=== PATIENT | male | born 1990 | race Asian ===

== ENCOUNTER 2023-11-04 02:58 | Inpatient (IN) | payer OTHER, SELFPAY ==
[2023-11-04] VITALS (8 sets, daily range): BP systolic 91–120; BP diastolic 48–74; PULSE 52–99; RESP 16–20; TEMP 36.4–36.9; O2SAT 98–100; BMI 25.8; BMI 26.5
--- NOTE | ~2023-11-04 | US_ITS ---
EXAMINATION: US ABDOMEN LIMITED CLINICAL INFORMATION: Right upper quadrant pain with question of acute cholecystitis. COMPARISON: CT abdomen and pelvis earlier today TECHNIQUE: Real-time imaging of the gallbladder and common bile duct only FINDINGS: Multiple gallstones are present with the largest measuring about 1.5 cm. No gallbladder wall thickening or pericholecystic fluid is seen. The common bile duct is dilated at 1 cm. Oseguera's sign is negative but the patient has received pain medication. US/US abdomen limited IMPRESSION: Cholelithiasis with dilated common bile duct. On the prior CT scan, inflammatory changes were seen around the gallbladder. Although no obstructing lesion is seen, findings are suspicious for possible cholecystitis with choledocholithiasis. MRCP recommended for further evaluation
--- NOTE | ~2023-11-04 | MR_ITS ---
EXAMINATION: MR ABDOMEN WITHOUT CONTRAST CLINICAL INFORMATION: Abdominal pain. Gallstones. COMPARISON: Right upper quadrant ultrasound 11/04/2023 CT abdomen/pelvis 11/04/2023 TECHNIQUE: MR abdomen is performed without gadolinium contrast. Heavily T2 weighted MRCP sequences were also obtained. FINDINGS: LUNG BASES: No pleural or pericardial effusion. LIVER, GALLBLADDER, AND BILIARY TREE: The liver is normal in size, smooth in contour, and normal in signal. The common duct measures 7 mm at the gilberto hepatis and tapers smoothly. Mild central intrahepatic biliary ductal dilatation. No intraductal filling defects. Gallstones. Trace pericholecystic fluid. PANCREAS: No ductal dilatation. SPLEEN: Not enlarged. ADRENAL GLANDS: No adrenal mass. KIDNEYS AND URETERS: The kidneys are normal in size and shape. No hydronephrosis. No perinephric stranding. GASTROINTESTINAL TRACT: No small bowel bowel obstruction. No ascites or fluid collection. LYMPH NODES: No bulky lymphadenopathy. VASCULAR: Normal caliber abdominal aorta. MR/MR MRCP IMPRESSION: Cholelithiasis. Trace pericholecystic fluid. Mild intrahepatic and extrahepatic biliary ductal dilatation without intraductal filling defects. Advise clinical correlation for acute cholecystitis.
--- NOTE | ~2023-11-04 | CT_ITS ---
EXAMINATION: CT ABDOMEN AND PELVIS WITH CONTRAST CLINICAL INFORMATION: Pain, question appendicitis COMPARISON: None available. TECHNIQUE: Multidetector volumetric images were obtained from the superior aspect of the liver through the pubic symphysis following administration 85 mL of Omnipaque 350 intravenous contrast. Sagittal and coronal reformatted images were obtained on the technologist's workstation. Oral contrast: No This CT examination was performed using dose optimization techniques as appropriate, variously including the following: *Automated exposure control *Adjustment of mA and/or kV according to patient size (this includes techniques or standardized protocols for targeted exams where dose is matched to indication/reason for exam; i.e. extremities or head) *Use of iterative reconstruction technique DLP: 429 mGy-cm FINDINGS: Limited evaluation in some regions due to motion artifact. LUNG BASES: The visualized lung bases are unremarkable. LIVER, GALLBLADDER, AND BILIARY TREE: The liver is normal in size, shape, and attenuation. No focal hepatic lesion or biliary ductal dilatation is present. Gallbladder is suboptimally assessed due to motion artifact. No densely calcified gallstones are seen. Gallbladder wall appears slightly prominent. PANCREAS: Unremarkable. SPLEEN: Unremarkable. ADRENAL GLANDS: Unremarkable. KIDNEYS AND URETERS: The kidneys are normal in size, shape, and attenuation. No hydronephrosis, hydroureter, or calculi seen. No perinephric stranding. BLADDER: Unremarkable. GASTROINTESTINAL TRACT: No evidence of bowel obstruction. No significant bowel wall thickening is seen. Appendix appears nondilated. No free fluid or free air is seen. ABDOMINAL WALL: No significant hernia is appreciated. LYMPH NODES: Normal. VASCULAR: Unremarkable. PELVIC VISCERA: Unremarkable. OSSEOUS STRUCTURES: Unremarkable. CT/CT abdomen pelvis w IV con IMPRESSION: Limited evaluation in some regions due to motion artifact. Gallbladder wall appears slightly prominent, of uncertain significance. If there is clinical concern for acute gallbladder pathology, assessment with ultrasound is recommended. Otherwise, no additional acute findings identified in the abdomen/pelvis. Normal appendix.
[2023-11-04 04:00] LABS: Basophils Absolute Auto 0.1 X10*3/uL (0.0-0.2); Basophils Percent Auto 0.3 % (0-2); Eosinophils Absolute Auto 0.1 X10*3/uL (0.0-0.4); Eosinophils Percent Auto 0.4 % (0-4); Hematocrit 39.9 % (42.0-52.0); Hemoglobin 13.7 g/dl (14.0-18.0); Imm Gran Abs Auto 0.05 X10*3/uL (0.00-0.03); Imm Gran Pct Auto 0.3 % (0.0-0.4); Lymphocytes Absolute Auto 3.2 X10*3/uL (1.2-4.9); Lymphocytes Percent Auto 19.3 % (20-40); MANUAL DIFF FLAG NO; Mean Corpuscular HGB Conc 34.3 g/dl (31.0-36.0); Mean Corpuscular Hemoglobin 30.4 pg (27.0-33.0); Mean Corpuscular Volume 88.5 fL (80.0-98.0); Monocytes Percent Auto 6.1 % (2-11); Neutrophils Absolute Auto 12.2 x10*3/uL (2.0-8.3); Neutrophils Percent Auto 73.6 % (45-73); Platelet Count 336 X10*3/uL (160-400); Red Blood Count 4.51 X10*6/uL (4.60-5.80); Red Cell Distribution Width 13.2 % (11.0-16.0); White Blood Count 16.6 X10*3/uL (4.8-10.8)
[2023-11-04 04:15] LABS: Alanine Aminotransferase 21 U/L (0-40); Albumin Level 4.1 g/dL (3.5-5.0); Alkaline Phosphatase 87 U/L (39-117); Anion Gap 11 (12-20); Aspartate Amino Transferase 17 U/L (5-37); Bilirubin Direct 0.1 mg/dL (0.0-0.5); Bilirubin Total 0.4 mg/dL (0.0-1.0); Blood Urea Nitrogen 11 mg/dL (9-16); Carbon Dioxide 30 mmol/L (22-29); Chloride 105 mmol/L (96-108); Creatinine Clr Calc Pharmacy 107.7; Estimated Glomerular Filt Rate > 60; Glucose Random 119 mg/dL (60-115); Lipase 19 U/L (8-78); Potassium 3.7 mmol/L (3.3-5.1); Sodium 142 mmol/L (135-145); Total Protein 7.1 g/dL (6.5-8.0)
--- NOTE | 2023-11-04 04:38 | ED_ITS ---
HPI - Abdominal Pain General Chief Complaint: Abdominal Pain Stated Complaint: rt side abd pain Time Seen by Provider: 11/04/23 04:19 Source: patient Mode of arrival: ambulatory Limitations: no limitations History of Present Illness ED Provider: jacquelyn CRAFT narrative: Patient otherwise healthy complaining of pain in right lower abdomen since 11/02/2023 got worse prior to arrival could not sleep vomited with nausea had meal at 20:00 last night no fever no chills no urinary complaints no history of kidney stone, no hematuria had normal bowel movement pain gets worse on ambulation Related Data Allergies Allergy/AdvReac Type Severity Reaction Status Date / Time No Known Allergies Allergy Verified 11/04/23 03:10 Review of Systems Review of Systems Yes all other systems are reviewed and are negative [facility] Social History Social History Advance Directives: No Advance Directives Information Provided: Yes Do you have a plan to hurt others: No Plan Physical Exam ED Vital Signs: Vital Signs - 24 hr 11/04/23 03:09 11/04/23 06:25 Temperature 97.8 F 98.2 F Pulse Rate 62 52 Respiratory Rate 16 16 Blood Pressure 108/74 91/48 L Pulse Oximetry 99 98 Oxygen Delivery Method Room Air Room Air BMI result Body Mass Index 25.8 Appearance: Alert. Oriented X3. No acute distress. Eyes: No pallor or icterus ENT: Pharynx normal. Oral Mucosa moist Neck: Normal inspection. Neck supple. CVS: Normal heart rate and rhythm. Pulses normal. Respiratory: No respiratory distress. Equal air entry bilateral, no wheezing/rales/rhonchi Abdomen: Soft and tenderness with guarding right lower quadrant and deep tenderness right upper quadrant , Bowel sounds are present, no mass palpable, no CVA tenderness Skin: Skin warm and dry. Normal skin color. Normal skin turgor. Extremities: No lower extremity edema. No calf tenderness Neuro: Oriented X 3. No motor deficit. Medical Decision Making Medical Decision Making [facility] Narrative: Patient has leukocytosis right lower abdominal pain possible appendicitis CT scan final report is pending but I did not see any inflammation right lower abdomen, patient is signed out to Dr. Whiting pending CT scan report and disposition CT scan of the abdomen revealed normal appendix showed possible gallstones will get ultrasound patient does have slight tenderness in right upper quadrant also Differential Diagnosis Differential Diagnoses: The differential diagnosis associated with the presentation includes Acute appendicitis/ureteric stone/gallstones/diverticulitis/gastroenteritis Admission/Observation Consideration of admission/observation: Escalation of care including admission/observation considered Lab Data MDM Lab Attestation statement: I reviewed the patient's lab results. 11/04/23 03:56 11/04/23 03:56 Labs: Lab Results 11/04/23 Range/Units 03:56 WBC 16.6 H (4.8-10.8) X10*3/uL RBC 4.51 L (4.60-5.80) X10*6/uL Hgb 13.7 L (14.0-18.0) g/dl Hct 39.9 L (42.0-52.0) % MCV 88.5 (80.0-98.0) fL MCH 30.4 (27.0-33.0) pg MCHC 34.3 (31.0-36.0) g/dl RDW 13.2 (11.0-16.0) % Plt Count 336 (160-400) X10*3/uL MPV 9.0 L (9.4-12.4) fL Immature Gran % (Auto) 0.3 (0.0-0.4) % Neut % (Auto) 73.6 H (45-73) % Lymph % (Auto) 19.3 L (20-40) % [place] % (Auto) 6.1 (2-11) % Eos % (Auto) 0.4 (0-4) % Baso % (Auto) 0.3 (0-2) % Lymph # (Auto) 3.2 (1.2-4.9) X10*3/uL [place] # (Auto) 1.0 (0.1-1.2) X10*3/uL Eos # (Auto) 0.1 (0.0-0.4) X10*3/uL Baso # (Auto) 0.1 (0.0-0.2) X10*3/uL Abs Immat Gran (auto) 0.05 H (0.00-0.03) X10*3/uL Absolute Neuts (auto) 12.2 H (2.0-8.3) x10*3/uL Absolute Nucleated RBC 0.000 (0.0-0.012) X10*3/uL Nucleated RBC % (auto) 0.0 (0.0-0.2) /100WBC Sodium 142 (135-145) mmol/L Potassium 3.7 (3.3-5.1) mmol/L Chloride 105 (96-108) mmol/L Carbon Dioxide 30 H (22-29) mmol/L Anion Gap 11 L (12-20) BUN 11 (9-16) mg/dL Creatinine 0.88 (0.5-1.4) mg/dL Estim Creat Clear Calc 107.7 Estimated GFR > 60 Random Glucose 119 H (60-115) mg/dL Calcium 9.0 (8.4-10.2) mg/dL Total Bilirubin 0.4 (0.0-1.0) mg/dL Direct Bilirubin 0.1 (0.0-0.5) mg/dL AST 17 (5-37) U/L ALT 21 (0-40) U/L Alkaline Phosphatase 87 (39-117) U/L Total Protein 7.1 (6.5-8.0) g/dL Albumin 4.1 (3.5-5.0) g/dL Lipase 19 (8-78) U/L Independent Interpretation I performed an independent interpretation of an: CT Scan Radiology Impression Discussion of test interpretation with radiology: I have reviewed the radiologist's reading. Radiologist Impression: CT/CT abdomen pelvis w IV con IMPRESSION: Limited evaluation in some regions due to motion artifact. Gallbladder wall appears slightly prominent, of uncertain significance. If there is clinical concern for acute gallbladder pathology, assessment with ultrasound is recommended. Otherwise, no additional acute findings identified in the abdomen/pelvis. Normal appendix. Medications Administered Discontinued Medications Generic Name Dose Route Start Last Admin Trade Name Freq PRN Reason Stop Dose Admin Sodium Chloride 1,000 mls @ 999 mls/hr 11/04/23 04:37 11/04/23 06:04 Ns IV 11/04/23 05:37 Infused .Q1H1M ONE Infusion Iohexol 85 ml 11/04/23 05:31 11/04/23 05:31 Iohexol 350 Mg/Ml 100 Ml Infus..Btl IV 11/04/23 05:32 85 ml ONCE ONE Administration Morphine Sulfate 4 mg 11/04/23 04:37 11/04/23 05:03 Morphine Sulfate 4 Mg/Ml Cartridge IVPUSH 11/04/23 04:38 4 mg ONCE ONE Administration Protocol Ondansetron HCl 4 mg 11/04/23 04:37 11/04/23 05:03 Ondansetron Hcl 4 Mg/2 Ml Vial IVPUSH 11/04/23 04:38 4 mg ONCE ONE Administration Discharge Plan Discharge Clinical Impression: Abdominal pain Patient Disposition: Still a Patient Print Language: Hong Konger
[2023-11-04] MEDS: Morphine Sulfate 4 MG/ML CARTRIDGE IVPUSH (05:03)
[2023-11-04] MEDS: ondansetron HCL 4 MG/2 ML VIAL IVPUSH (05:03)
[2023-11-04] MEDS: 0.9 % Sodium Chloride 1,000 ML 999 ML IV ×2 (05:03→09:49)
[2023-11-04] MEDS: iohexoL 350 MG/ML 100 ML INFUS..BTL 85 ML IV (05:31)
--- NOTE | 2023-11-04 07:43 | PC.NURSE ---
Resumed care of pt at 0700. Resting in bed quietly, respirations even and unlabored, no increased WOB/SOB. US taken, call singh within reach, pt aware of plan of care at this time.
[2023-11-04] MEDS: cefTRIAXone sodium 1 GM in 0.9 % Sodium Chloride 50 ML IV (09:48)
[2023-11-04 10:01] LABS: Appearance Urine Turbid; Color Urine Yellow; Glucose Urine UA Negative (Negative); Leukocyte Esterase Urine Negative (Negative); Nitrite Urine Negative (Negative); PH >= 9.0 (5.0-9.0); Specific Gravity - Urine >= 1.030 (1.005-1.025); UMIC TRIGGER UACC YES; Urine Blood Negative (Negative); Urine Ketones Negative (Negative); Urine Protein 30 (1+) mg/dL (Neg-Trace)
[2023-11-04 10:03] LABS: Bacteria Urine None Seen (None Seen); Hyaline Casts Urine 0-2 /LPF (0-2); RBC Urine 0-2 /HPF (0-2); Squamous Epithelial Cell Urine 0-2 /HPF (0-2); WBC Urine 0-5 /HPF (0-5)
--- NOTE | 2023-11-04 10:04 | PC.NURSE ---
Pt aware of NPO status, last oral intake 8pm yesterday 11/02
[2023-11-04 10:06] LABS: Lactic Acid 1.1 mmol/L (0.5-2.0)
[2023-11-04] MEDS: 0.9 % Sodium Chloride 500 ML IV (10:36)
--- NOTE | 2023-11-04 10:49 | PC.NURSE ---
MRI screening form done and faxxed.
--- NOTE | 2023-11-04 10:53 | PM.HPGS ---
History of Present Illness History of Present Illness Date of Service: 11/05/23 Chief complaint: Gallstone Narrative: Manfred Neal is a 33 year old male who came to the ER around 04:00 o'clock this morning because of right-sided abdominal pain. He says this was relieved after was given narcotics earlier. He denies any nausea or vomiting. He does state that he has had this periodic pain for about over a year now. He says he has had multiple episodes but has not really gone to the ER except early this morning He does not see any primary care physician. He does not have any previous abdominal surgery.l Review of Systems Constitutional: Constitutional: Denies chills and Denies fever(s) Cardiovascular: Cardiovascular: Denies chest pain, Denies dyspnea and Denies dyspnea on exertion Respiratory: Respiratory: Denies cough, Denies dyspnea and Denies dyspnea on exertion Gastrointestinal: Gastrointestinal: Denies hematochezia and Denies change in bowel habits Genitourinary: Genitourinary: Denies hematuria and Denies difficulty urinating Musculoskeletal: Musculoskeletal: Denies back pain and Denies limited range of motion Neurologic: Denies focal weakness and Denies convulsions Psychiatric: Psychiatric: Denies depression and Denies mood swings PMFSH Past Medical History Medical History Gallstones Surgical History Surgical History [place] teeth extracted Social History Social History Household Members: Family Housing: Apartment Do you presently have visiting nurse or other home services: No Patient Tobacco Use Status: Current someday Tobacco user Tobacco use type: Cigarette Cigarettes Per Day: 1 Smoked in Last 30 Days: Yes Patient Interested in Nicotine Replacement: No Patient Given Instructions on How to Stop Smoking: No Second Hand Smoke Exposure: No Use of substances other than those prescribed or required for medical reasons: Yes Substance Use Type: Marijuana Substance Use Type Other:: last 2 days ago Substance Use Frequency: Daily Last Used Substance: Days (ago) Currently Displaying Signs/Symptoms of Drug Intoxication Withdrawal: No Any prior treatment program specific to substance use: No Have you been hit, kicked, punched, or otherwise hurt by someone within the past year? If so, by whom?: No Do you feel safe in your current relationship?: Yes Is there a partner from a previous relationship who is making you feel unsafe now?: No Are you made to feel afraid or neglected: No Are you DNR?: No Advance Directives: No Advance Directives Information Provided: Yes Do you have a plan to hurt others: No Plan Recently lost weight without trying: No How much weight loss: Not applicable Eating poorly because of decreased appetite: No Nutrition screen score: 0 Nutrition Risks: No Nutritional Risk Meds Allergies Allergy/AdvReac Type Severity Reaction Status Date / Time No Known Allergies Allergy Verified 11/04/23 03:10 Home Medications ?Medication ?Instructions ?Recorded ?Confirmed ?Last Taken ?Type valacyclovir 500 mg tablet 500 mg PO Q12H 11/04/23 11/04/23 11/03/23 20:00 History (Valtrex) Physical Exam Vital Signs: Vital Signs: Last Vital Signs Temp 98.2 F 11/04/23 09:17 Pulse 57 11/04/23 09:17 Resp 16 11/04/23 09:17 BP 103/61 11/04/23 10:33 Pulse Ox 99 11/04/23 09:17 O2 Del Method Room Air 11/04/23 09:17 BMI result Body Mass Index 25.8 Const: General: comfortable and no acute distress Orientation/consciousness: patient oriented x3 Neck: Neck: Yes no lymphadenopathy Resp: Auscultation: clear to auscultation bilaterally Cardio: Rhythm: regular rhythm GI: Palpation (GI): Soft to palpation, nontender and no guarding Neuro: General: patient oriented x3 Results Results Labs: Short CBC 11/04/23 Range/Units 03:56 WBC 16.6 H (4.8-10.8) X10*3/uL Hgb 13.7 L (14.0-18.0) g/dl Hct 39.9 L (42.0-52.0) % Plt Count 336 (160-400) X10*3/uL BMP 11/04/23 03:56 Sodium 142 Potassium 3.7 Chloride 105 Carbon Dioxide 30 H BUN 11 Creatinine 0.88 Calcium 9.0 Liver Function 11/04/23 Range/Units 03:56 Total Bilirubin 0.4 (0.0-1.0) mg/dL Direct Bilirubin 0.1 (0.0-0.5) mg/dL AST 17 (5-37) U/L ALT 21 (0-40) U/L Alkaline Phosphatase 87 (39-117) U/L Albumin 4.1 (3.5-5.0) g/dL Urine 11/04/23 Range/Units 09:45 Urine Color Yellow Urine Appearance Turbid Urine pH >= 9.0 (5.0-9.0) Ur Specific [place] >= 1.030 H (1.005-1.025) Urine Protein 30 (1+) H (Neg-Trace) mg/dL Urine Glucose (UA) Negative (Negative) mg/dL Abdomen CT scan report/results: report reviewed and image reviewed CT scan - pelvis: report reviewed and image reviewed Abdominal ultrasound report/results: report reviewed and image reviewed Assessment and Plan (1) Gallstones: Status: Acute He had right sided abdominal pain which he described as severe this morning. His pain has resolved but he says he has had multiple episodes in the past. I have reviewed his CT and US, and this shows gallstones with some thickening of the GB wall c/w cholecystitis. There is suggestion of CBD dilatation but his LFTs are normal. AN MRCP has been ordered. He does have leukocystosis so I will admit him. I explained the option of laparoscopic cholecystectomy. I discussed the technique of this procedure. I reviewed the risks including but not limited to bleeding, infections, bowel injury, injury to the liver, injury to the bile ducts, bile leak, retained stones, as well as the benefits and alternatives. He does state that he wants to proceed with cholecystectomy in view of his recurrent episodes. If his MRCP does not show CBD stones, we may be able to do this cholecystectomy tomorrow. His was with him during the discussion. He looks well and nontoxic at this time. Quality Stroke Does the patient have a stroke diagnosis?: No VTE Prior VTE?: No VTE Risk Level:: Medical - low VTE Device Contraindication: N/A - Device Ordered VTE Drug Contraindication: Treatment Not Indicated Procedures Date of Service Date of Service: 11/05/23
--- NOTE | 2023-11-04 11:32 | PC.NURSE ---
pt being transported to MRI at this time.
[2023-11-04] MEDS: Lactated Ringers 1,000 ML 80 ML IVCONT (12:41)
[2023-11-04] MEDS: Piperacillin Sodium/Tazobactam 3.375 GM in 0.9 % Sodium Chloride 50 ML IV ×2 (12:41→19:39)
--- NOTE | 2023-11-04 12:42 | PC.NURSE ---
pt returned from MRI at this time. IVF/abx administered per provider order. MRI results pending. pt resting in no apparent distress. no sob/wob noted. respirations even/unlabored. pt continues to wait for bed assignment at this time. plan of care ongoing.
--- NOTE | 2023-11-04 12:46 | PHA.MEDREC ---
Addendum entered by Alison Diaz tigist 11/04/23 12:51: REVIEWED Original Note: Pharmacy Consult ? Medication Reconciliation Pharmacy has completed the medication reconciliation. Confirmed medications with patient and member at bedside. Patient states they are taking a Valtrex 500mg tab once daily and he gets it filled at [facility] on [facility] in [place] and states he last took it last night around 8pm with dinner.
--- NOTE | 2023-11-04 16:30 | PC.NURSE ---
pt continues to rest in no apparent distress w the lights dimmed. denies any pain at this time. has no complaints. respirations remain even/unlabored. call singh placed within reach.
--- NOTE | 2023-11-04 19:57 | MHC.EDTECH ---
This tech took over care of patient at 1900,hourly rounds and vitals completed,belongings list completed and copy placed in chart,girlfriend at bedside call singh in reach
[2023-11-05] VITALS (16 sets, daily range): BP systolic 97–132; BP diastolic 55–85; PULSE 44–81; RESP 15–20; TEMP 36.1–37.3; O2SAT 96–100
[2023-11-05] MEDS: Piperacillin Sodium/Tazobactam 3.375 GM in 0.9 % Sodium Chloride 50 ML IV ×4 (00:04→18:35)
[2023-11-05] MEDS: Lactated Ringers 1,000 ML 80 ML IVCONT ×3 (00:35→21:47)
[2023-11-05 06:45] LABS: Alanine Aminotransferase 15 U/L (0-40); Albumin Level 3.2 g/dL (3.5-5.0); Alkaline Phosphatase 70 U/L (39-117); Aspartate Amino Transferase 15 U/L (5-37); Bilirubin Direct 0.3 mg/dL (0.0-0.5); Bilirubin Total 0.9 mg/dL (0.0-1.0); Total Protein 5.7 g/dL (6.5-8.0)
--- NOTE | 2023-11-05 08:03 | PM.EVENT ---
Event Note Date of Service: 11/05/23 Event Note: Patient says that he slept well overnight Denies significant pain No fever Abdomen soft and benign MRCP does not show filling defect or suggestion of CBD obstruction LFTs normal this morning For laparoscopic cholecystectomy today in view of recurrent episodes of pain He understands the technique of the planned procedure as well as the risks, benefits, and alternatives Time Spent With Patient Time: Total time managing care of this patient today ____ minutes.
--- NOTE | 2023-11-05 08:08 | P.CONAN_ITS ---
[facility] Active Problems Active Problems: All Active Problems Gallstones (Acute) Acute cholecystitis (Acute) Abdominal pain (Acute) Past Medical History Medical History Gallstones Surgical History Surgical History [place] teeth extracted History of Problems with Anesthesia: No Social History Social History Household Members: Family Housing: Apartment Do you presently have visiting nurse or other home services: No Patient Tobacco Use Status: Current someday Tobacco user Tobacco use type: Cigarette Cigarettes Per Day: 1 Second Hand Smoke Exposure: No Substance Use Type: Marijuana Meds Allergies Allergy/AdvReac Type Severity Reaction Status Date / Time No Known Allergies Allergy Verified 11/04/23 03:10 Active Medications: Current Medications Acetaminophen (Acetaminophen 325 Mg Tablet) 650 mg PO Q6H PRN PRN Reason: Pain, Mild (Pain Scale 1-3), fever or headache Calcium Carbonate (Calcium Carbonate 750 Mg Tab.Chew) 750 mg PO Q4H PRN PRN Reason: Heartburn Lactated Ringer's (Lr) 1,000 mls @ 80 mls/hr IVCONT .[id number] [facility] Last Admin: 11/05/23 00:35 Dose: 80 mls/hr Piperacillin Sod/Tazobactam (Sod 3.375 gm/ Sodium Chloride) 50 mls @ 100 mls/hr IV Q6H [facility] Last Infusion: 11/05/23 06:30 Dose: Infused Magnesium Hydroxide (Milk Of Magnesia 30 Ml Oral.Susp) 30 ml PO DAILY PRN PRN Reason: Constipation Melatonin (Melatonin 3 Mg Tablet) 6 mg PO BEDTIME PRN PRN Reason: Insomnia Morphine Sulfate (Morphine Sulfate 2 Mg/Ml Cartridge) 2 mg IVPUSH Q3H PRN; Protocol PRN Reason: Pain, Severe (Pain Scale 7-10) Ondansetron HCl (Ondansetron Hcl 4 Mg/2 Ml Vial) 4 mg IVPUSH Q6H PRN PRN Reason: Nausea Sodium Chloride (0.9 % Sodium Chloride Flush 3 Ml Syringe) 3 ml IVFLUSH QSHIFT [facility] Last Admin: 11/05/23 07:19 Dose: Not Given Home Medications ?Medication ?Instructions ?Recorded ?Confirmed ?Last Taken ?Type valacyclovir 500 mg tablet 500 mg PO Q12H 11/04/23 11/04/23 11/03/23 20:00 History (Valtrex) Exam Height,Weight and Vital Signs: Height 5 ft 6 in Weight 74.5 kg Last Vital Signs Temp 98.5 F 11/05/23 07:11 Pulse 53 11/05/23 07:11 Resp 16 11/05/23 07:11 BP 105/58 L 11/05/23 07:11 Pulse Ox 96 11/05/23 07:11 O2 Del Method Room Air 11/05/23 07:11 Pertinent Lab Results Pertinent Lab Results: Laboratory Tests 11/04/23 11/04/23 11/05/23 03:56 09:45 05:39 WBC 16.6 H RBC 4.51 L Hgb 13.7 L Hct 39.9 L MCV 88.5 MCH 30.4 MCHC 34.3 RDW 13.2 Plt Count 336 MPV 9.0 L Immature Gran % (Auto) 0.3 Neut % (Auto) 73.6 H Lymph % (Auto) 19.3 L [place] % (Auto) 6.1 Eos % (Auto) 0.4 Baso % (Auto) 0.3 Lymph # (Auto) 3.2 [place] # (Auto) 1.0 Eos # (Auto) 0.1 Baso # (Auto) 0.1 Abs Immat Gran (auto) 0.05 H Absolute Neuts (auto) 12.2 H Absolute Nucleated RBC 0.000 Nucleated RBC % (auto) 0.0 Hold Purple Top SEE NOTE Sodium 142 Potassium 3.7 Chloride 105 Carbon Dioxide 30 H Anion Gap 11 L BUN 11 Creatinine 0.88 Estim Creat Clear Calc 107.7 Estimated GFR > 60 Random Glucose 119 H Lactic Acid 1.1 Calcium 9.0 Total Bilirubin 0.4 0.9 Direct Bilirubin 0.1 0.3 AST 17 15 ALT 21 15 Alkaline Phosphatase 87 70 Total Protein 7.1 5.7 L Albumin 4.1 3.2 L Lipase 19 Urine Color Yellow Urine Appearance Turbid Urine pH >= 9.0 Ur Specific [place] >= 1.030 H Urine Protein 30 (1+) H Urine Glucose (UA) Negative Urine Ketones Negative Urine Blood Negative Urine Nitrite Negative Ur Leukocyte Esterase Negative Urine RBC 0-2 Urine WBC 0-5 Ur Squamous Epith Cells 0-2 Urine Bacteria None Seen Hyaline Casts 0-2 Airway Mallampati Class: III (long left central incisor) TM Dist: >3cm Neck ROM: Full Loose/Missing/Broken Teeth: No Heart: RRR Lungs: CTA Assessment and Plan Assessment Anesthesia Assessment: Anesthesia Plan Discussed and Chart Reviewed Final Anesthetic Review History of Problems with Anesthesia: No NPO: Yes ASA Class: II Final Preanesthetic Review: Meds/Allgs Chart Reviewed, Consent Obtained/Reviewed and Anes Risks/Benef Reviewed Patient Risk: Low Procedure Risk: Intermediate Anesthetic Plan Anesthetic Plan: GA Disposition: Standard PACU
--- NOTE | 2023-11-05 10:57 | P.OP_ITS ---
Operative Note Operative Note Date of Service: 11/05/23 Narrative: Preop diagnosis: Gallstones, acute cholecystitis Postop diagnosis: Acute on chronic calculous cholecystitis Procedure: Laparoscopic cholecystectomy Surgeon: Danis Echols MD Development Technical Lead: SHAWANDA Reynolds student The patient is a 33-year-old male with multiple episodes of right upper quadrant pain CT, admitted for an acute episode yesterday. He had gallstones on imaging studies with some suggestion of cholecystitis. In view of recurrent symptoms he wanted to proceed with cholecystectomy. He understood the technique of the planned procedure as well as the risks, benefits and alternatives. He was brought to the operating room. He was placed supine under general anesthesia via endotracheal tube. The abdomen was prepped and draped in usual sterile fashion. A surgical time-out was done. The patient received Cefotan 2 g IV preoperatively I made a short supraumbilical incision using blade 15. This was carried down through the full-thickness of the skin subcutaneous fat down to the fascia. The fascia was incised. The peritoneum was entered. Through this incision a Beltran port was introduced. Pneumoperitoneum was introduced to a pressure of 15 mm Hg. From here on the rest the procedure was done under vision with the 10 mm 30 degree laparoscope With laparoscopic visualization I inserted a 5/12 mm port in the epigastric area below the subcostal margin. Two 5 mm ports introduced a small incisions below the subcostal margin along the anterior axillary line and the the midclavicular line. Graspers were placed through these working ports. The patient was placed in head up [id number] position. The gallbladder was seen at the fundus. I was able to apply a grasper at the fundus to retract the gallbladder cephalad. The gallbladder was therefore being retracted in cephalad fashion. By doing so was able to visualize the entire gallbladder. There was note of thickened, fibrotic wall, some erythema along with large stones making grasping the neck difficult. The stone in the neck appeared to be impacted. Eventually I was able to apply a grasper towards the neck of the gallbladder. There was note of a lot of thick fibrous bands surrounding the neck which we had to carefully dissect with the [place] dissector. The gallbladder was being retracted in a cephalad fashion to put the area of the cystic duct on stretch. I then had to do careful dissection with the [place] dissector to define the cystic duct. This part of the procedure took an extended period of time because of the amount of adhesions with fibrotic changes in the area. Eventually I was able to see what appeared to be the cystic duct along with its confluence of the neck of the gallbladder. We were able to achieve a critical view of the hepatocystic triangle. There were no other structures in this area except for thin vessels included the cystic artery I was able to apply a clip at the cystic duct with 2 clips being applied distally. The cystic duct was transected between clips with Endo scissors. Retraction of the gallbladder away from the liver bed was done. I gently dissected the area of the hilum. Was able to visualize the cystic artery. This was gently defined with the [place] dissector. Clips were applied on the cystic artery with 2 clips being applied distally. The cystic artery was also transected with the clips with Endo scissors. There was note of others fine small vessels in the area of the hilum which she had to clip and divide between clips with scissors Eventually was able to reach the interface of the gallbladder wall and the liver bed. I used the hook electrocautery to dissect the gallbladder wall off of the liver bed. Again the planes were difficult in view of chronic fibrotic changes. We had to proceed slowly with a combination of blunt dissection with the tip of the electrocautery hook as well as electrocautery itself I gently the gallbladder from the liver bed along a poorly defined plane. I had to apply clips multiple times on areas of the dissected wall has a bleeding from chronic inflammation. Eventually I was able to reach the fundus and completely separate the gallbladder from the liver bed. The gallbladder was distended with large stones. I retrieved the bladder using an endobag through the umbilical incision. I had to dilate this fascial incision with a large Tamanna clamp to allow us to retrieved the specimen because of the large stones I reinserted all ports and re-insufflated I examined the subhepatic space. There was no signs of any bleeding. I copiously irrigated the area and observed for about 2 minutes. There was no bleeding and I suctioned out the irrigant fluid. I observed all 4 quadrants. There was no other pathology. There was no evidence of any bowel injury or any bile leak Once hemostasis was confirmed, I proceeded to then desufflated the port sites. I removed all ports under vision with the laparoscope. The umbilical port was removed last. The fascia of the umbilical incision was closed with a [id number] Polysorb 0 stitch. All skin incisions were closed with Polysorb 4-0 subcuticular running sutures. All incisions were infiltrated with Marcaine 0.5% for postop analgesia. Steri-Strips and dressings were applied. The procedure was then completed The patient tolerated the procedure well. There were no immediate complications. Initial and final counts of sponges and instruments were correct. Estimated blood loss about 100 cc The patient was extubated without difficulty and transferred to the recovery room with stable vital signs.
[2023-11-05] MEDS: HYDROmorphone HCl 0.5 MG/0.5 ML SYRINGE 0.25 MG IVPUSH ×4 (11:12→11:45)
--- NOTE | 2023-11-05 14:00 | MHC.CM.PN ---
CM attempted to meet with patient x2, off floor for surgery the back on unit sleeping. CM will continue attempts to complete SLEEVE FIXER.
[2023-11-05] MEDS: Morphine Sulfate 2 MG/ML CARTRIDGE IVPUSH ×3 (15:09→23:39)
--- NOTE | 2023-11-05 15:34 | PM.EVENT ---
Event Note Date of Service: 11/05/23 Event Note: Seen postop Status post laparoscopic cholecystectomy earlier Seems to have adequate pain control Stable vital signs Looks well Pain management He says he wants to stay overnight and plan to DC home tomorrow at bedside Time Spent With Patient Time: Total time managing care of this patient today ____ minutes.
--- NOTE | 2023-11-05 16:15 | MHC.CM.PN ---
Patient lives in an apt w/ . Functionally independent. No PCP. G provider brochure given to patient. Discussed importance of establishing care w/ PCP. Patient completed HCP naming HCA's as : 1) Crystal Jaime and 2) mother in law Sahra Linares. DP: Home self care. Family transport. CM will continue to follow.
--- NOTE | 2023-11-05 17:16 | PC.NURSE ---
MD Echols made aware pts umbilicus band-aid was saturated with blood and falling off. Band-aid was removed and replaced. Site does not appear to be actively bleeding at this time.
[2023-11-05] MEDS: Calcium Carbonate 750 MG TAB.CHEW PO (19:15)
[2023-11-06] MEDS: Piperacillin Sodium/Tazobactam 3.375 GM in 0.9 % Sodium Chloride 50 ML IV ×2 (00:01→06:01)
[2023-11-06 03:25] VITALS: BP 103/56; PULSE 63; RESP 16; TEMP 36.4; O2SAT 96
[2023-11-06] MEDS: oxyCODONE HCl Immed Release 5 MG TABLET 10 MG PO ×2 (06:51→11:02)
--- NOTE | 2023-11-06 06:59 | P.PNGS_ITS ---
Subjective Subjective Date of Service: 11/06/23 <[facility] Filed: 11/06/23 07:07> 11/06/23 <Danis Echols MD - Last Filed: 11/06/23 07:55> Interval history: Patient reports he is doing well. He says his pain has been manageable. Tolerating regular diet without difficulty. Has not passed gas or had a BM. Urinating without difficulty. Ambulating without difficulty. Vitals has remained stable overnight. <[facility] Filed: 11/06/23 07:07> Physical Exam 2 Vital Signs: Vital Signs: Last Vital Signs Temp 97.6 F 11/06/23 03:25 Pulse 63 11/06/23 03:25 Resp 16 11/06/23 03:25 BP 103/56 L 11/06/23 03:25 Pulse Ox 96 11/06/23 03:25 O2 Del Method Room Air 11/06/23 03:25 O2 Flow Rate 2 11/05/23 11:50 BMI result Body Mass Index 26.5 <[facility] Filed: 11/06/23 07:07> Const: General: cooperative, healthy appearing and comfortable <[facility] Filed: 11/06/23 07:07> Orientation/consciousness: patient oriented x3 <[facility] Filed: 11/06/23 07:07> Resp: Effort & Inspection: normal respiratory effort and able to speak in complete sentences <[facility] Filed: 11/06/23 07:07> Auscultation: clear to auscultation bilaterally <[facility] Filed: 11/06/23 07:07> Cardio: Rate: regular rate <[facility] Filed: 11/06/23 07:07> Rhythm: regular rhythm <[facility] Filed: 11/06/23 07:07> Heart sounds: S1 normal heart sound present and S2 normal heart sound present <[facility] Filed: 11/06/23 07:07> GI: Inspection: Yes normal to inspection and Yes incision (bandages are clean, dry and intact) <[facility] Filed: 11/06/23 07:07> Palpation (GI): Soft to palpation and Tenderness to palpation present (GI) (appropriate tenderness) <[facility] Filed: 11/06/23 07:07> Neuro: General: patient oriented x3 <[facility] Filed: 11/06/23 07:07> Objective Data Active Medications Acetaminophen (Acetaminophen 325 Mg Tablet) 650 mg PO Q6H PRN PRN Reason: Pain, Mild (Pain Scale 1-3), fever or headache Calcium Carbonate (Calcium Carbonate 750 Mg Tab.Chew) 750 mg PO Q4H PRN PRN Reason: Heartburn Last Admin: 11/05/23 19:15 Dose: 750 mg Documented By: SUDHAKAR Lactated Ringer's (Lr) 1,000 mls @ 80 mls/hr IVCONT .[id number] [facility] Last Infusion: 11/06/23 06:37 Dose: 80 mls/hr Documented By: SUDHAKAR Piperacillin Sod/Tazobactam (Sod 3.375 gm/ Sodium Chloride) 50 mls @ 100 mls/hr IV Q6H [facility] Last Infusion: 11/06/23 06:37 Dose: Infused Documented By: SUDHAKAR Magnesium Hydroxide (Milk Of Magnesia 30 Ml Oral.Susp) 30 ml PO DAILY PRN PRN Reason: Constipation Melatonin (Melatonin 3 Mg Tablet) 6 mg PO BEDTIME PRN PRN Reason: Insomnia Morphine Sulfate (Morphine Sulfate 2 Mg/Ml Cartridge) 2 mg IVPUSH Q3H PRN; Protocol PRN Reason: Pain, Severe (Pain Scale 7-10) Last Admin: 11/05/23 23:39 Dose: 2 mg Documented By: SUDHAKAR Ondansetron HCl (Ondansetron Hcl 4 Mg/2 Ml Vial) 4 mg IVPUSH Q6H PRN PRN Reason: Nausea Oxycodone HCl (Oxycodone Hcl Immed Release 5 Mg Tablet) 10 mg PO Q4H PRN PRN Reason: Pain, Moderate(Pain Scale 4-6) Last Admin: 11/06/23 06:51 Dose: 10 mg Documented By: ESTELLA Sodium Chloride (0.9 % Sodium Chloride Flush 3 Ml Syringe) 3 ml IVFLUSH QSHIFT [facility] Last Admin: 11/06/23 06:49 Dose: Not Given Documented By: ESTELLA Non-Admin Reason: IV Running <[facility] Filed: 11/06/23 07:07> Labs CBC & Chem 7: 11/04/23 03:56 11/04/23 03:56 <[facility] Filed: 11/06/23 07:07> Microbiology Microbiology Results: Microbiology 11/04/23 09:45 Blood Culture - Preliminary Blood - Venous No growth after 24 hours. 11/04/23 09:45 Blood Culture - Preliminary Blood - Venous No growth after 24 hours. <[facility] Filed: 11/06/23 07:07> Procedures Date of Service Date of Service: 11/06/23 <[facility] Filed: 11/06/23 07:07> 11/06/23 <Danis Echols MD - Last Filed: 11/06/23 07:55> Progress Note: A&P Assessment and plan (1) Acute cholecystitis: Status: Acute <[facility] Filed: 11/06/23 07:07> Assessment and Plan: feels well pain well controlled tolerating diet no N/V abd soft stable VS he says he is ready to be discharged instructions reinforced with pt seen and examined independently <Danis Echols MD - Last Filed: 11/06/23 07:55> Assessment and Plan: Patient is s/p laparoscopic cholecystectomy due to acute cholecystitis Pain management has be adequate No flatus or BM yet, tolerating regular diet without difficulties Vitals have remained stable Could consider trial of PO medications later today <[facility] Filed: 11/06/23 07:07> Time Spent With Patient Time: Total time managing care of this patient today ____ minutes. <[facility] Filed: 11/06/23 07:07> Quality Stroke Does the patient have a stroke diagnosis?: No <[facility] Filed: 11/06/23 07:07> VTE Prior VTE?: No <[facility] Filed: 11/06/23 07:07> VTE Risk Level:: Medical - low <[facility] Filed: 11/06/23 07:07> VTE Device Contraindication: N/A - Device Ordered <[facility] Filed: 11/06/23 07:07> VTE Drug Contraindication: Treatment Not Indicated <[facility] Filed: 11/06/23 07:07>
[2023-11-06 07:34] VITALS: BP 108/58; PULSE 66; RESP 16; TEMP 36.6; O2SAT 97
--- NOTE | 2023-11-06 09:08 | MHC.CM.PN ---
Patient is discharged to home today self care. Patients will provide transport home.
--- NOTE | 2023-11-06 10:17 | HO.POSTANES ---
Post Anesthesia Evaluation Post Anesthesia Evaluation Date of Service: 11/05/23 Vital Signs: Vital Signs Temp Pulse Resp BP Pulse Ox O2 Del Method 11/06/23 07:40 Room Air 11/06/23 07:34 97.9 F 66 16 108/58 L 97 Room Air 11/06/23 03:25 97.6 F 63 16 103/56 L 96 Room Air 11/05/23 23:31 98.1 F 70 16 97/55 L 96 Room Air Anesthesia: General Endotracheal-GETA Mental Status: Awake Pain Control: Satisfactory Nausea/Vomiting: None Hydration: Adequate Anesthesia-Related Issues: No Anes. Related Issues
--- NOTE | 2023-11-06 12:07 | P.DS_ITS ---
DS: Providers Provider Date of Service: 11/06/23 Date of admission: 11/04/23 11:01 Date of discharge: 11/06/23 Primary care physician: None Physician Attending physician on admission: Danis Echols Attending physician on discharge: Danis Echols DS: Diagnosis Discharge Diagnosis (1) Acute cholecystitis: Status: Acute DS: Summary Hospital Course Hospital Course: HPI AT ADMISSION: Manfred Neal is a 33 year old male who came to the ER around 04:00 o'clock this morning because of right-sided abdominal pain. He says this was relieved after was given narcotics earlier. He denies any nausea or vomiting. He does state that he has had this periodic pain for about over a year now. He says he has had multiple episodes but has not really gone to the ER except early this morning. He does not see any primary care physician. He does not have any previous abdominal surgery. CT and US, and this shows gallstones with some thickening of the GB wall c/w cholecystitis. There is suggestion of CBD dilatation but his LFTs are normal. HOSPITAL COURSE: The patient was admitted to the surgical service for further treatment of the acute cholecystitis. MRCP was ordered for evaluation of his dilated CBD which showed no biliary obstruction. He elected to proceed with laparoscopic cholecystectomy, possible open. He was added onto the OR schedule for the following day. On 11/05/23, laparoscopic cholecystecomy was performed by Dr. Echols without complication. The patient tolerated the procedure well. He had an uncomplicated recovery course. On POD #1, he felt well and was tolerating a solid diet without nausea or vomiting, had good pain control and was ambulating without difficulty. He was hemodynamically stable. His abdomen was benign with appropriate post op tenderness and clean and intact dressings. He felt ready for discharge. He was discharged to home on 11/06/23 in stable condition. He is to follow up in the office in 2 weeks. Status at Discharge Functional status at discharge: independent ambulation Overall status at discharge: patient is progressing back to baseline Time Attestation Discharge Coordination Time (in mins): 30 Quality: Safe Use of Opioids Does Pt have an Active Cancer Diagnosis on the Problem List?: No Quality: Stroke Does the patient have a stroke diagnosis?: No Physical Exam Vital Signs: Vital Signs: Last Vital Signs Temp 97.9 F 11/06/23 07:34 Pulse 66 11/06/23 07:34 Resp 16 11/06/23 07:34 BP 108/58 L 11/06/23 07:34 Pulse Ox 97 11/06/23 07:34 O2 Del Method Room Air 11/06/23 07:40 O2 Flow Rate 2 11/05/23 11:50 BMI result Body Mass Index 26.5 Const: General: comfortable, no acute distress and alert GI: Inspection: No distended and Yes incision (dressings c/d/i) Skin: General skin exam: no rashes or lesions noted and no jaundice DS: Data Data Completed and Pending Completed studies during hospitalization [Text1]: 11/05/23 10:27 Surgical [PTH] Routine Gallbladder, cholecystectomy: Subacute on chronic cholecystitis with cholesterolosis and cholelithiasis. Procedures Resection of Gallbladder, Percutaneous Endoscopic Approach (11/04/23) Discharge Plan Discharge Anticipated Discharge Date/Time: 11/06/23 10:56 Patient Disposition: Home, Self-Care Discharge Diagnosis: acute cholecystitis Referrals: Danis Echols MD [Physician] - 2 Weeks Physician,None [Primary Care Provider] - 1 Week Discharge Medications: New oxycodone-acetaminophen [Percocet] 5-325 mg tablet 1 tab PO Q4-6H PRN (Reason: pain) Qty: 25 0RF Rx Instructions: Partial Fill upon patient request. ibuprofen 600 mg tablet 600 mg PO Q6H PRN (Reason: pain) Qty: 30 0RF Continued valacyclovir [Valtrex] 500 mg Tablet 500 mg PO Q12H Discharge Orders: Discharge Order (Routine); Ordered 11/06/23 Ordered By: Danis Echols Diet: Advance to usual diet Activity on Discharge: No heavy lifting Stand Alone Forms: Patient Portal Discharge page Print Language: Macedonian Care Plan Goals: If the incision area is tender, you may apply an ice pack for short intervals (No more than 20 minutes on, followed by at least 20 minutes off). Do not apply heat. Do not use creams, lotions, or topical antibiotics unless instructed to do so by your surgeon. These can cause infection or allergic reaction. No lifting more than 20 lbs Okay to shower starting November 07, 2023 Okay to change dressings with gauze or Band-Aid starting 11/07/2023 No strenuous activities Call the office for follow-up in 2 weeks - with Dr. Echols Call Your Doctor If: -Your temperature exceeds 101.5? F -You experience excessive pain or swelling -You have an unexpected reaction to medication -You have excessive bleeding -You experience continued vomiting/nausea -Your incision begins to separate -Your incision shows signs of infection such as increased redness, swelling, excessive pain, drainage (light blood or clear fluid is normal) or heat Health Concerns: postop pain Plan of Treatment: oral pain meds Assessment: doing very well Discharge Date/Time: 11/06/23 12:09
== END 2023-11-06 12:09 | disposition home or self-care (01) | DRG 419 ==
LOC: HO.ED 11:00 → HO.EDOVER 11:26 → HO.S3 19:51
PROVIDERS: Internal Medicine; Admitting Provider Surgery; Emergency Provider Emergency Medicine; Visit Provider Surgery
PROC: 0FT44ZZ Resection of Gallbladder, Percutaneous Endoscopic Approach (ICD-10-PCS; CPT 47562; principal; 2023-11-05 09:30)
DX: K80.12 Calculus of gallbladder with acute and chronic cholecystitis without obstruction (principal); F17.210 Nicotine dependence, cigarettes, uncomplicated; Z71.6 Tobacco abuse counseling
CPT/HCPCS: 36415; 74177; 74181; 76705; 80053; 80076; 81001; 81003; 82248; 83605; 83690; 85025; 87040; 88304; 99285; J0696; J1100; J1170; J1596; J2250; J2270; J2405; J2543; J2704; J2795; J3010; J7120; Q9967

== ENCOUNTER → 2023-11-04 11:01 | Outpatient (BNV) | payer SELFPAY | PROVIDERS: Admitting Provider Surgery; Emergency Provider Emergency Medicine; Visit Provider Surgery | DX: K81.0 Acute cholecystitis (principal) | CPT/HCPCS: 47562; 99024; 99222; 99499 ==

== ENCOUNTER 2023-11-16 11:27 | Emergency (ER) | payer OTHER, SELFPAY ==
[2023-11-16 11:30] VITALS: BP 115/70; BP 122/89; PULSE 74; PULSE 76; RESP 16; TEMP 36.8; O2SAT 96; O2SAT 99; BMI 22.3
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
[2023-11-16 11:52] VITALS: RESP 16
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
[2023-11-16 12:17] LABS: MANUAL DIFF FLAG NO
[2023-11-16 12:22] LABS: Basophils Percent Auto 0.4 % (0-2); Eosinophils Percent Auto 0.1 % (0-4); Hematocrit 42.2 % (42.0-52.0); Hemoglobin 14.4 g/dl (14.0-18.0); Imm Gran Abs Auto 0.04 X10*3/uL (0.00-0.03); Imm Gran Pct Auto 0.4 % (0.0-0.4); Lymphocytes Absolute Auto 2.3 X10*3/uL (1.2-4.9); Lymphocytes Percent Auto 22.9 % (20-40); Mean Corpuscular HGB Conc 34.1 g/dl (31.0-36.0); Mean Corpuscular Hemoglobin 30.4 pg (27.0-33.0); Mean Corpuscular Volume 89.2 fL (80.0-98.0); Mean Platelet Volume 9.1 fL (9.4-12.4); Monocytes Absolute Auto 0.9 X10*3/uL (0.1-1.2); Monocytes Percent Auto 8.5 % (2-11); Neutrophils Absolute Auto 6.9 x10*3/uL (2.0-8.3); Neutrophils Percent Auto 67.7 % (45-73); Platelet Count 376 X10*3/uL (160-400); Red Blood Count 4.73 X10*6/uL (4.60-5.80); Red Cell Distribution Width 13.7 % (11.0-16.0); White Blood Count 10.2 X10*3/uL (4.8-10.8)
[2023-11-16 12:34] LABS: Alanine Aminotransferase 16 U/L (0-40); Albumin Level 4.5 g/dL (3.5-5.0); Alkaline Phosphatase 97 U/L (39-117); Anion Gap 15 (12-20); Aspartate Amino Transferase 15 U/L (5-37); Bilirubin Total 0.4 mg/dL (0.0-1.0); Blood Urea Nitrogen 7 mg/dL (9-16); Calcium 10.2 mg/dL (8.4-10.2); Carbon Dioxide 26 mmol/L (22-29); Chloride 108 mmol/L (96-108); Creatinine Clr Calc Pharmacy 100.7; Estimated Glomerular Filt Rate > 60; Ethanol < 10 mg/dL; Glucose Random 102 mg/dL (60-115); Potassium 3.9 mmol/L (3.3-5.1); Sodium 145 mmol/L (135-145)
[2023-11-16 13:34] LABS: Appearance Urine Clear; Color Urine Dark Yellow; Glucose Urine UA Negative (Negative); Leukocyte Esterase Urine Trace (Negative); Nitrite Urine Negative (Negative); PH 6.5 (5.0-9.0); Specific Gravity - Urine 1.025 (1.005-1.025); UMIC TRIGGER UACC YES; Urine Blood Negative (Negative); Urine Ketones Trace mg/dL (Negative); Urine Protein Trace mg/dL (Neg-Trace)
[2023-11-16 13:39] LABS: Bacteria Urine None Seen (None Seen); Hyaline Casts Urine 0-2 /LPF (0-2); RBC Urine 0-2 /HPF (0-2); Squamous Epithelial Cell Urine 0-2 /HPF (0-2); WBC Urine 0-5 /HPF (0-5)
[2023-11-16 13:50] LABS: Amphetamine Screen Urine Not Detected (Not Detect); Barbiturates, Urine Not Detected (Not Detect); Benzodiazepines Screen Urine Not Detected (Not Detect); Buprenorphine Scr Not Detected (Not Detect); Cannabinoid Screen Urine POSITIVE (Not Detect); Cocaine Screen Urine Not Detected (Not Detect); Fentanyl, urine Not Detected (Not Detect); Methadone Screen, Urine Not Detected (Not Detect); Opiate Screen Urine Not Detected (Not Detect); Oxycodone Screen Urine Not Detected (Not Detect); Phencyclidine Screen Urine Not Detected (Not Detect)
[2023-11-16 16:36] VITALS: BP 122/89; PULSE 74; RESP 16; TEMP 37.2
== END 2023-11-16 16:38 | disposition home or self-care (01) ==
PROVIDERS: Nurse Practitioner Family; Emergency Provider Emergency Medicine
DX: F43.20 Adjustment disorder, unspecified (principal); Z79.899 Other long term (current) drug therapy; F17.210 Nicotine dependence, cigarettes, uncomplicated; F12.90 Cannabis use, unspecified, uncomplicated
CPT/HCPCS: 36415; 80053; 80307; 81001; 85025; 99284; 99285; S9485

== ENCOUNTER 2023-11-25 10:52 | Outpatient (AMB) | payer SELFPAY ==
--- NOTE | 2023-11-25 10:54 | A.OFFVIS_ITS ---
Vital Signs 11/25/23 10:57 Height 5 ft 4 in Weight 130 lb BMI 22.3 Intake Visit Reasons: s/p cholecystectomy(inpatient) Intake Note: This patient presents for post-op status post Laparoscopic cholecystectomy. Pt c/o; reports no complaints. Financial Assistance Advisor Required: No Accompanied by: Self / Same As Patient Allergies No Known Allergies Allergy (Verified 11/25/23 10:56) HPI HPI s/p cholecystectomy(inpatient): Details: 33-year-old male here for a postop visit. He underwent laparoscopic cholecystectomy as an inpatient for acute cholecystitis last November 05, 2023. He tolerated procedure well. He currently denies significant complaints. He has good oral intake. [facility] Medical History Gallstones Surgical History (Updated 11/25/23 @ 10:57 by Danis Echols MD) History of laparoscopic cholecystectomy (~11/05/23) [place] teeth extracted Social History Household Members: Family Housing: Apartment Do you presently have visiting nurse or other home services: No Patient Tobacco Use Status: Current someday Tobacco user Tobacco use type: Cigarette Cigarettes Per Day: 1 Second Hand Smoke Exposure: No Substance Use Type: Marijuana service: No Review of Systems Const Denies chills and Denies fever(s) Card Denies chest pain, Denies dyspnea and Denies dyspnea on exertion Resp Denies cough, Denies dyspnea and Denies dyspnea on exertion GI Denies hematochezia and Denies change in bowel habits Denies hematuria and Denies difficulty urinating Musc Denies back pain and Denies limited range of motion Neuro Denies focal weakness and Denies convulsions Psych Denies depression and Denies mood swings Physical Exam Const General: comfortable and no acute distress Eyes Other: Anicteric sclerae Resp Effort & Inspection: normal respiratory effort GI Other: All incisions are well healed, no hernias Palpation (GI): Soft to palpation and not firm Assessment & Plan Assessment & Plan (1) History of laparoscopic cholecystectomy: Onset Date: ~11/05/23 Comment: MD So FACS Code(s): Z90.49 - Acquired absence of other specified parts of digestive tract Category: Surgical Plan: Status post laparoscopic cholecystectomy for acute cholecystitis. He is doing very well overall. His incisions are well healed His path report shows subacute cholecystitis and chronic cholecystitis with cholesterolosis. He can follow up on a p.r.n. basis He was advised to avoid lifting of anything more than 20 lb for 2 more weeks. Coding Level of Care Code Global (43141) Diagnoses History of laparoscopic cholecystectomy Z90.49
[2023-11-25 10:57] VITALS: BMI 22.3
== END 2023-11-25 11:04 | disposition home or self-care (01) ==
PROVIDERS: Visit Provider Surgery
DX: Z90.49 Acquired absence of other specified parts of digestive tract (principal)
CPT/HCPCS: 99024

== ENCOUNTER → 2023-11-25 10:52 | Outpatient (BNVA) | payer OTHER, SELFPAY | PROVIDERS: Visit Provider Surgery | DX: Z09 Encounter for follow-up examination after completed treatment for conditions other than malignant neoplasm (principal); Z90.49 Acquired absence of other specified parts of digestive tract | CPT/HCPCS: 99212 ==